=== PATIENT | male | born 1965 | race African-American/Black ===

== ENCOUNTER 2017-09-20 13:29 | Inpatient (IN) | payer OTHER ==
[2017-09-20 16:33] VITALS: BMI 33.4
--- NOTE | 2017-09-20 20:10 | HP ---
Admission ROS [facility] - [facility] Chief Complaint: I WANT TO GO TO REHAB Allergies/Adverse Reactions: Allergies Allergy/AdvReac Type Severity Reaction Status Date / Time No Known Allergies Allergy Verified 09/20/17 20:06 History of Present Illness: 51 YEARS OLD MALE WITH LONG HISTORY OF COCAINE NICOTINE DEPENDENCE HAS HYPERTENSION DIABETES II AND SCHIZOPHRENIA IS ADMITTED TO REHAB Exam Limitations: No Limitations - Ebola screening Have you traveled outside of the country in the last 21 days: No (N) Have you had contact with anyone from an Ebola affected area: No Have you been sick,other than usual withdrawal symptoms: No Do you have a fever: No - Review of Systems Constitutional: Weight Stable EENT: reports: Blurred Vision (EYE GLASSES) Respiratory: reports: No Symptoms reported Cardiac: reports: No Symptoms Reported GI: reports: No Symptoms Reported : reports: No Symptoms Reported Musculoskeletal: reports: No Symptoms Reported Integumentary: reports: No Symptoms Reported Neuro: reports: No Symptoms reported Endocrine: reports: Increased Urine Hematology: reports: No Symptoms Reported Psychiatric: reports: Judgement Intact, Orientated x3, Anxious, Depressed Other Systems: Reviewed and Negative Patient History - Patient Medical History Hx Anemia: No Hx Asthma: No Hx Chronic Obstructive Pulmonary Disease (COPD): No Hx Cancer: No Hx Cardiac Disorders: No Hx Congestive Heart Failure: No Hx Hypertension: Yes Hx Hypercholesterolemia: No Hx Pacemaker: No HX Cerebrovascular Accident: No Hx Seizures: No Hx Dementia: No Hx Diabetes: Yes Hx Gastrointestinal Disorders: No Hx Liver Disease: No Hx Genitourinary Disorders: No Hx Sexually Transmitted Disorders: No Hx Renal Disease (ESRD): No Hx Thyroid Disease: No Hx Human Immunodeficiency Virus (HIV): No Hx Hepatitis C: No Hx Depression: No Hx Suicide Attempt: No Hx Bipolar Disorder: No Hx Schizophrenia: Yes - Patient Surgical History Past Surgical History: No - PPD History Previous Implant?: Yes Documented Results: Negative w/o proof Implanted On Prior [facility] Admission?: No PPD to be Administered?: Yes - Smoking Cessation Smoking history: Current every day smoker Have you smoked in the past 12 months: Yes Aproximately how many cigarettes per day: 6 Cigars Per Day: 0 Hx Chewing Tobacco Use: No Initiated information on smoking cessation: Yes 'Breaking Loose' booklet given: 09/20/17 - Substance & Tx. History Hx Alcohol Use: No Hx Substance Use: Yes Substance Use Type: Cocaine Hx Substance Use Treatment: No ([facility]) - Substances Abused Cocaine Route: Smoking Frequency: Daily Amount used: 50$ Age of first use: 22 Date of Last Use: 09/19/17 Family Disease History - Family Disease History Family Disease History: Diabetes: Brother, Heart Disease: Brother, Sister, [place]: Mother (), Other: Father (NO CONTACT), Mother Admission Physical Exam [facility] - Vital Signs Vital Signs: Vital Signs - 24 hr 09/20/17 16:32 Temperature 98.9 F Pulse Rate 70 Respiratory 18 Rate Blood Pressure 150/83 - Physical General Appearance: Yes: No Apparent Distress, Appropriately Dressed, Obese HEENTM: Yes: Hearing grossly Normal, Normal ENT Inspection, Normocephalic, Normal Voice Respiratory: Yes: Chest Non-Tender, Lungs Clear, Normal Breath Sounds, No Respiratory Distress, No Accessory Muscle Use Neck: Yes: Supple, Trachea in good position Breast: Yes: Breasts Symetrical Cardiology: Yes: Regular Rhythm, Regular Rate, S1, S2 Abdominal: Yes: Normal Bowel Sounds, Non Tender, Flat, Soft Genitourinary: Yes: Within Normal Limits Back: Yes: Normal Inspection Musculoskeletal: Yes: full range of Motion, Gait Steady Extremities: Yes: Normal Inspection, Normal Range of Motion, Non-Tender Neurological: Yes: Fully Oriented, Alert, Motor Strength 5/5, Normal Mood/Affect , Normal Response Integumentary: Yes: Normal Color, Warm Lymphatic: Yes: Within Normal Limits - Diagnostic (1) Cocaine dependence, uncomplicated Current Visit: Yes Status: Acute (2) Nicotine dependence Current Visit: Yes Status: Acute Qualifiers: Nicotine product type: cigarettes Substance use status: in withdrawal Qualified Code(s): F17.213 - Nicotine dependence, cigarettes, with withdrawal (3) Hypertension Current Visit: Yes Status: Chronic Qualifiers: Hypertension type: essential hypertension Qualified Code(s): I10 - Essential (primary) hypertension (4) Diabetes mellitus type II, controlled Current Visit: Yes Status: Chronic Qualifiers: Diabetes mellitus complication status: without complication Diabetes mellitus mcfp insulin use: with exterminator use Qualified Code(s): E11.9 - Type 2 diabetes mellitus without complications; Z79.4 - laborer marine terminal (current) use of insulin; Z79.4 - jail (current) use of insulin; Z79.4 - jail ( current) use of insulin; Z79.4 - laborer marine terminal (current) use of insulin (5) Schizophrenia Current Visit: Yes Status: Suspected Qualifiers: Schizophrenia type: undifferentiated schizophrenia Qualified Code(s): F20.3 - Undifferentiated schizophrenia Cleared for Admission [facility] - Detox or Rehab [facility] Level of Care: Observation Bed Detox Regimen/Protocol: Not Applicable Claeared for Rehab Admission: Yes [facility] Breath Alcohol Content Breath Alcohol Content: 0 Urine Drug Screen - Results Drug Screen Negative: No Urine Drug Screen Results: REGINE-Cocaine Inpatient Rehab Admission - Initial Determination Are CD services needed?: Yes Free of communicable disease: Yes Not in need of hospitalization: Yes - Rehab Admission Criteria Previous failed treatment: Yes Poor recovery environment: Yes Comorbidities: Yes Lacks judgement: No Patient is meeting Inpatient Rehab admission criteria:: Yes
[2017-09-20] MEDS ORDERED: LOPERAMIDE HCL 2 MG CAPSULE PO PRN (20:15)
[2017-09-20] MEDS ORDERED: MAGNESIUM HYDROX 2400MG/30ML ORAL SUSPENSION 30 ML CUP PO PRN (20:15)
[2017-09-20] MEDS ORDERED: MAG HYDROX/AL HYDROX/SIMETH 30 ML UNIT-DOSE CUP PO PRN (20:15)
[2017-09-20] MEDS ORDERED: guaiFENesin/D-METHORPHAN HB 10 ML UNIT-DOSE CUPS PO PRN (20:15)
[2017-09-20] MEDS ORDERED: P-EPHED 60MG/TRIPROLIDI 2.5MG TABLET PO PRN (20:15)
[2017-09-20] MEDS ORDERED: MENTHOL/PHENOL 1 EACH UD MM PRN (20:15)
[2017-09-20] MEDS ORDERED: IBUPROFEN 400 MG TABLET (FP) PO PRN (20:15)
[2017-09-20] MEDS ORDERED: ACETAMINOPHEN 325 MG TABLET (FP) PO PRN (20:15)
[2017-09-20] MEDS ORDERED: MAGNESIUM CITRATE 300 ML BOTTLE PO PRN (20:15)
[2017-09-20] MEDS: THIAMINE HCL 100 MG TABLET (FP) PO SCH (22:35)
[2017-09-20] MEDS: INSULIN DETEMIR 100 UNITS/ML MDV SQ SCH (22:36)
[2017-09-20] MEDS: INSULIN SLIDING SCALE (NOVOLOG) 1 VIAL SQ SCH (22:36)
[2017-09-20] MEDS: NICOTINE POLACRILEX 2 MG GUM BC PRN (22:38)
[2017-09-21 03:11] LABS: URINE APPEARANCE CLEAR; URINE BILIRUBIN NEGATIVE (NEGATIVE); URINE BLOOD NEGATIVE (NEGATIVE); URINE COLOR LTYELLOW; URINE GLUCOSE (UA) 1+ (NEGATIVE); URINE KETONE NEGATIVE (NEGATIVE); URINE LEUK ESTERASE NEGATIVE (NEGATIVE); URINE NITRITE NEGATIVE (NEGATIVE); URINE PROTEIN NEGATIVE (NEGATIVE); URINE UROBILINOGEN NEGATIVE mg/dL (0.2-1.0)
--- NOTE | 2017-09-21 07:02 | HP ---
Psychiatrist Admission - Data Date of interview: 09/21/17 Admission source: [facility] Identifying data: Mr Moctezuma is a 51 years old single Black male, father of 2 children, unemployed on public assistance, homeless living in [place] [facility] Medical History: Significant for hypertension and type 2 diabetes mellitus. Smokes 6 cigarettes daily Psychiatric History: Reports that his first psychiatric contact was in December 2016 when he was brought to [facility] ED for hearing voices. States that after being observed for one day and prescribed medications, he was discharged and referred to [facility] OPD for aftercare. He could not provide any information about medications he was prescribed. According to pharmacy claims, he first filled scripts for Haldol 1 mg #30 and Cogentin 2 mg #30 on 12/28/16. On 01/27/17 he filled last scripts for Haldol 5 mg #30 and Cogentin 2 mg #30. On 02/10/17 he filled first script for Zoloft 50 mg #30. On 03/30/17, he filled first script for Zyprexa 5 mg #7, on 04/20/17 script for Zyprexa 5mg #30 and last script for Zyprexa 2.5 mg #14. On 09/15/17, he filled script for Abilify 19 mg #30 and Zoloft 100 mg #30. Analyzing informatio from patient and pharmacy claims, one can conclude that he was discharged on Haldol 1 mg and Cogentin 2mg from [facility] ED. At the clinic, Haldol was dosage was increased to 5 mg then swiched to Zyprexa 5 mg and finally swiched to Abilify 10 mg. He was also started on Zoloft 50 mg and dosage later increased to 100 mg. Physical/Sexual Abuse/Trauma History: Denies history of verbal, physical or sexual abuse as well as DV relationship. No service Additional Comment: Reports history of 3 previous arrests all felony convictions. Reports being on parole till 2020 Vital Signs: Vital Signs - 24 hr 09/20/17 09/21/17 09/21/17 16:32 00:30 03:30 Temperature 98.9 F Pulse Rate 70 Respiratory 18 18 18 Rate Blood Pressure 150/83 09/21/17 06:56 Temperature 98.1 F Pulse Rate 68 Respiratory 18 Rate Blood Pressure 166/101 Allergies/Adverse Reactions: Allergies Allergy/AdvReac Type Severity Reaction Status Date / Time No Known Allergies Allergy Verified 09/20/17 20:06 Date of last physical exam: 09/20/17 Concur with the findings of this exam: Yes - Substance Abuse/Tx History Hx Alcohol Use: No Hx Substance Use: Yes Substance Use Type: Cocaine (Started smoking crack cocaine at age 22, consumes $ 50 worth daily. Last smoked on 09/19/16) Hx Substance Use Treatment: No Mental Status Exam - Mental Status Exam Alert and Oriented to: Time, Place, Person Cognitive Function: Fair Patient Appearance: Disheveled Mood: Depressed Affect: Blunted Patient Behavior: Cooperative Speech Pattern: Clear Voice Loudness: Normal Thought Process: Intact, Goal Oriented Hallucinations: Denies Suicidal Ideation: Denies Homicidal Ideation: Denies Insight/Judgement: Poor Sleep: Poorly Appetite: Good Muscle strength/Tone: Normal Gait/Station: Normal Psychiatric Findings - Problem List (Antonito 1, 2,3) (1) Cocaine dependence Current Visit: Yes Status: Acute (2) Nicotine dependence Current Visit: Yes Status: Chronic Qualifiers: Nicotine product type: cigarettes Substance use status: in withdrawal Qualified Code(s): F17.213 - Nicotine dependence, cigarettes, with withdrawal (3) Schizophrenia Current Visit: Yes Status: Chronic Qualifiers: Schizophrenia type: undifferentiated schizophrenia Qualified Code(s): F20.3 - Undifferentiated schizophrenia (4) Substance-induced sleep disorder Current Visit: Yes Status: Acute (5) Diabetes mellitus type II, controlled Current Visit: Yes Status: Chronic Qualifiers: Diabetes mellitus complication status: without complication Diabetes mellitus long term care social worker insulin use: with custodial use Qualified Code(s): E11.9 - Type 2 diabetes mellitus without complications; Z79.4 - long term care social worker (current) use of insulin; Z79.4 - correction (current) use of insulin; Z79.4 - correction ( current) use of insulin; Z79.4 - long term care social worker (current) use of insulin (6) Hypertension Current Visit: Yes Status: Chronic Qualifiers: Hypertension type: essential hypertension Qualified Code(s): I10 - Essential (primary) hypertension (7) Substance induced mood disorder Current Visit: Yes Status: Acute - Initial Treatment Plan Initial Treatment Plan: 1) Start Abilify 10 mg po daily and Zoloft 100 mg po daily. 2) Start Belsomra 10 mg po HS prn for insomnia. 3) Monitor progress
[2017-09-21] MEDS: NICOTINE 14 MG/24 HOURS TOPICAL PATCH TD SCH (10:18)
[2017-09-21] MEDS: PRENATAL VITAMINS W/ FOLIC ACID TABLET (FP) PO SCH (10:18)
[2017-09-21 10:35] LABS: HEMATOCRIT 43.8 % (35.4-49); HEMOGLOBIN 13.9 GM/dL (11.7-16.9); MCH 29.2 pg (25.7-33.7); MCHC 31.8 g/dl (32.0-35.9); MEAN CELL VOLUME 91.7 fl (80-96); MEAN PLT VOLUME 10.3 fl (7.5-11.1); PLATELET COUNT 184 K/MM3 (134-434); RBC 4.77 M/mm3 (4.00-5.60); RDW 17.3 % (11.9-15.9); WHITE BLOOD COUNT 5.5 K/mm3 (4.0-10.0)
[2017-09-21] MEDS: SERTRALINE HCL 50 MG TABLET (FP) PO SCH (10:57)
[2017-09-21] MEDS: RAMIPRIL 5 MG CAPSULE (FP) PO SCH (10:57)
[2017-09-21] MEDS: ARIPiprazole 10 MG TABLET PO SCH (10:57)
--- NOTE | 2017-09-21 14:45 | EKG ---
Test Reason : Blood Pressure : / mmHG Vent. Rate : 066 BPM Atrial Rate : 066 BPM P-R Int : 130 ms QRS Dur : 088 ms QT Int : 394 ms P-R-T Axes : 053 007 048 degrees QTc Int : 413 ms NORMAL SINUS RHYTHM NONSPECIFIC T WAVE ABNORMALITY ABNORMAL ECG NO PREVIOUS ECGS AVAILABLE Confirmed by Clifton Denny MD ([id number]) on 09/21/2017 2:45:25 PM Referred By: Confirmed By:Clifton Denny MD
[2017-09-21 15:10] LABS: ALBUMIN 3.4 g/dl (3.4-5.0); ANION GAP 5 (8-16); BILIRUBIN,TOTAL 0.4 mg/dL (0.2-1.0); BLOOD UREA NITROGEN 21 mg/dL (7-18); CALCIUM 8.4 mg/dL (8.5-10.1); CHLORIDE 108 mmol/L (98-107); CO2 28 mmol/L (21-32); CREATININE 1.2 mg/dL (0.7-1.3); GLUCOSE,RANDOM 131 mg/dL (74-106); SGOT/AST 21 U/L (15-37); SGPT/ALT 31 U/L (12-78); SODIUM 141 mmol/L (136-145); TOT PROT 6.7 g/dl (6.4-8.2)
[2017-09-21 15:11] LABS: ALK PHOS 82 U/L (45-117)
[2017-09-21] MEDS: INSULIN DETEMIR 100 UNITS/ML MDV SQ SCH (21:38)
[2017-09-21] MEDS: THIAMINE HCL 100 MG TABLET (FP) PO SCH (21:38)
[2017-09-21] MEDS: INSULIN SLIDING SCALE (NOVOLOG) 1 VIAL SQ SCH (21:39)
[2017-09-21] MEDS: NICOTINE POLACRILEX 2 MG GUM BC PRN (21:40)
[2017-09-22] MEDS ORDERED: cloNIDine HCL 0.1 MG TABLET PO ONE (06:31)
[2017-09-22] MEDS: PRENATAL VITAMINS W/ FOLIC ACID TABLET (FP) PO SCH (10:05)
[2017-09-22] MEDS: RAMIPRIL 5 MG CAPSULE (FP) PO SCH (10:05)
[2017-09-22] MEDS: ARIPiprazole 10 MG TABLET PO SCH (10:05)
[2017-09-22] MEDS: SERTRALINE HCL 50 MG TABLET (FP) PO SCH (10:05)
[2017-09-22] MEDS: NICOTINE 14 MG/24 HOURS TOPICAL PATCH TD SCH (10:06)
[2017-09-22] MEDS: INSULIN SLIDING SCALE (NOVOLOG) 1 VIAL SQ SCH (21:03)
[2017-09-22] MEDS: THIAMINE HCL 100 MG TABLET (FP) PO SCH (21:03)
[2017-09-22] MEDS: NICOTINE POLACRILEX 2 MG GUM BC PRN (21:04)
[2017-09-22] MEDS: INSULIN DETEMIR 100 UNITS/ML MDV SQ SCH (21:04)
[2017-09-23] MEDS ORDERED: cloNIDine HCL 0.1 MG TABLET PO ONE (06:30)
[2017-09-23] MEDS: ARIPiprazole 10 MG TABLET PO SCH (10:19)
[2017-09-23] MEDS: PRENATAL VITAMINS W/ FOLIC ACID TABLET (FP) PO SCH (10:19)
[2017-09-23] MEDS: NICOTINE 14 MG/24 HOURS TOPICAL PATCH TD SCH (10:19)
[2017-09-23] MEDS: SERTRALINE HCL 50 MG TABLET (FP) PO SCH (10:19)
[2017-09-23] MEDS: RAMIPRIL 5 MG CAPSULE (FP) PO SCH (10:29)
[2017-09-23] MEDS: INSULIN SLIDING SCALE (NOVOLOG) 1 VIAL SQ SCH (21:02)
[2017-09-23] MEDS: INSULIN DETEMIR 100 UNITS/ML MDV SQ SCH (21:02)
[2017-09-23] MEDS: THIAMINE HCL 100 MG TABLET (FP) PO SCH (21:02)
[2017-09-23] MEDS: NICOTINE POLACRILEX 2 MG GUM BC PRN (21:02)
[2017-09-23] MEDS: SUVOREXANT 10 MG TABLET PO PRN (21:34)
[2017-09-24] MEDS: RAMIPRIL 5 MG CAPSULE (FP) PO SCH (07:21)
[2017-09-24] MEDS: SERTRALINE HCL 50 MG TABLET (FP) PO SCH (10:07)
[2017-09-24] MEDS: NICOTINE 14 MG/24 HOURS TOPICAL PATCH TD SCH (10:07)
[2017-09-24] MEDS: ARIPiprazole 10 MG TABLET PO SCH (10:08)
[2017-09-24] MEDS: PRENATAL VITAMINS W/ FOLIC ACID TABLET (FP) PO SCH (10:08)
[2017-09-24] MEDS ORDERED: cloNIDine HCL 0.1 MG TABLET PO ONE (12:19)
[2017-09-24] MEDS: amLODIPine BESYLATE 5 MG TABLET (FP) PO SCH (14:21)
[2017-09-24] MEDS: THIAMINE HCL 100 MG TABLET (FP) PO SCH (21:12)
[2017-09-24] MEDS: NICOTINE POLACRILEX 2 MG GUM BC PRN (21:13)
[2017-09-24] MEDS: INSULIN SLIDING SCALE (NOVOLOG) 1 VIAL SQ SCH (21:13)
[2017-09-24] MEDS: INSULIN DETEMIR 100 UNITS/ML MDV SQ SCH (21:14)
[2017-09-24] MEDS: SUVOREXANT 10 MG TABLET PO PRN (21:56)
[2017-09-25] MEDS: RAMIPRIL 5 MG CAPSULE (FP) PO SCH (06:31)
[2017-09-25] MEDS: NICOTINE 14 MG/24 HOURS TOPICAL PATCH TD SCH (10:06)
[2017-09-25] MEDS: amLODIPine BESYLATE 5 MG TABLET (FP) PO SCH (10:06)
[2017-09-25] MEDS: SERTRALINE HCL 50 MG TABLET (FP) PO SCH (10:06)
[2017-09-25] MEDS: PRENATAL VITAMINS W/ FOLIC ACID TABLET (FP) PO SCH (10:06)
[2017-09-25] MEDS: ARIPiprazole 10 MG TABLET PO SCH (10:06)
[2017-09-25] MEDS: NICOTINE POLACRILEX 2 MG GUM BC PRN ×2 (14:17→18:01)
[2017-09-25] MEDS: THIAMINE HCL 100 MG TABLET (FP) PO SCH (21:12)
[2017-09-25] MEDS: INSULIN DETEMIR 100 UNITS/ML MDV SQ SCH (21:13)
[2017-09-25] MEDS: SUVOREXANT 10 MG TABLET PO PRN (21:13)
[2017-09-25] MEDS: INSULIN SLIDING SCALE (NOVOLOG) 1 VIAL SQ SCH (21:14)
[2017-09-26] MEDS: RAMIPRIL 5 MG CAPSULE (FP) PO SCH (06:38)
[2017-09-26] MEDS: NICOTINE 14 MG/24 HOURS TOPICAL PATCH TD SCH (09:52)
[2017-09-26] MEDS: PRENATAL VITAMINS W/ FOLIC ACID TABLET (FP) PO SCH (09:52)
[2017-09-26] MEDS: ARIPiprazole 10 MG TABLET PO SCH (09:52)
[2017-09-26] MEDS: SERTRALINE HCL 50 MG TABLET (FP) PO SCH (09:52)
[2017-09-26] MEDS: amLODIPine BESYLATE 5 MG TABLET (FP) PO SCH (09:53)
[2017-09-26] MEDS: INSULIN DETEMIR 100 UNITS/ML MDV SQ SCH (21:14)
[2017-09-26] MEDS: SUVOREXANT 10 MG TABLET PO PRN (21:14)
[2017-09-26] MEDS: THIAMINE HCL 100 MG TABLET (FP) PO SCH (21:14)
[2017-09-26] MEDS: INSULIN SLIDING SCALE (NOVOLOG) 1 VIAL SQ SCH (21:14)
[2017-09-26] MEDS: NICOTINE POLACRILEX 2 MG GUM BC PRN (21:16)
[2017-09-27] MEDS: RAMIPRIL 5 MG CAPSULE (FP) PO SCH (06:29)
[2017-09-27] MEDS: SERTRALINE HCL 50 MG TABLET (FP) PO SCH (09:23)
[2017-09-27] MEDS: ARIPiprazole 10 MG TABLET PO SCH (09:23)
[2017-09-27] MEDS: NICOTINE 14 MG/24 HOURS TOPICAL PATCH TD SCH (09:23)
[2017-09-27] MEDS: PRENATAL VITAMINS W/ FOLIC ACID TABLET (FP) PO SCH (09:23)
[2017-09-27] MEDS: amLODIPine BESYLATE 5 MG TABLET (FP) PO SCH (09:23)
[2017-09-28] MEDS: RAMIPRIL 5 MG CAPSULE (FP) PO SCH (06:11)
[2017-09-28] MEDS: ARIPiprazole 10 MG TABLET PO SCH (10:19)
[2017-09-28] MEDS: PRENATAL VITAMINS W/ FOLIC ACID TABLET (FP) PO SCH (10:19)
[2017-09-28] MEDS: SERTRALINE HCL 50 MG TABLET (FP) PO SCH (10:19)
[2017-09-28] MEDS: NICOTINE 14 MG/24 HOURS TOPICAL PATCH TD SCH (10:19)
[2017-09-28] MEDS: amLODIPine BESYLATE 5 MG TABLET (FP) PO SCH (10:19)
[2017-09-28] MEDS: INSULIN DETEMIR 100 UNITS/ML MDV SQ SCH ×2 (18:40→22:21)
[2017-09-28] MEDS: THIAMINE HCL 100 MG TABLET (FP) PO SCH ×2 (18:41→22:22)
[2017-09-28] MEDS: INSULIN SLIDING SCALE (NOVOLOG) 1 VIAL SQ SCH ×2 (18:41→22:22)
[2017-09-28] MEDS: NICOTINE POLACRILEX 2 MG GUM BC PRN (22:21)
[2017-09-29] MEDS: RAMIPRIL 5 MG CAPSULE (FP) PO SCH (06:32)
[2017-09-29] MEDS: SERTRALINE HCL 50 MG TABLET (FP) PO SCH (10:03)
[2017-09-29] MEDS: PRENATAL VITAMINS W/ FOLIC ACID TABLET (FP) PO SCH (10:03)
[2017-09-29] MEDS: ARIPiprazole 10 MG TABLET PO SCH (10:03)
[2017-09-29] MEDS: amLODIPine BESYLATE 5 MG TABLET (FP) PO SCH (10:03)
[2017-09-29] MEDS: NICOTINE 14 MG/24 HOURS TOPICAL PATCH TD SCH (10:03)
[2017-09-29] MEDS: THIAMINE HCL 100 MG TABLET (FP) PO SCH (21:14)
[2017-09-29] MEDS: INSULIN DETEMIR 100 UNITS/ML MDV SQ SCH (21:15)
[2017-09-29] MEDS: INSULIN SLIDING SCALE (NOVOLOG) 1 VIAL SQ SCH (21:15)
[2017-09-30] MEDS: RAMIPRIL 5 MG CAPSULE (FP) PO SCH (06:33)
[2017-09-30] MEDS: ARIPiprazole 10 MG TABLET PO SCH (10:12)
[2017-09-30] MEDS: amLODIPine BESYLATE 5 MG TABLET (FP) PO SCH (10:12)
[2017-09-30] MEDS: PRENATAL VITAMINS W/ FOLIC ACID TABLET (FP) PO SCH (10:12)
[2017-09-30] MEDS: NICOTINE 14 MG/24 HOURS TOPICAL PATCH TD SCH (10:12)
[2017-09-30] MEDS: SERTRALINE HCL 50 MG TABLET (FP) PO SCH (10:12)
[2017-09-30] MEDS: HYDROCHLOROTHIAZIDE 12.5 MG CAPSULE (FP) PO SCH (10:12)
[2017-09-30] MEDS: THIAMINE HCL 100 MG TABLET (FP) PO SCH (21:36)
[2017-09-30] MEDS: INSULIN DETEMIR 100 UNITS/ML MDV SQ SCH (21:41)
[2017-09-30] MEDS: INSULIN SLIDING SCALE (NOVOLOG) 1 VIAL SQ SCH (23:05)
[2017-10-01] MEDS: RAMIPRIL 5 MG CAPSULE (FP) PO SCH (06:12)
[2017-10-01] MEDS: NICOTINE POLACRILEX 2 MG GUM BC PRN ×2 (06:14→21:17)
[2017-10-01] MEDS: PRENATAL VITAMINS W/ FOLIC ACID TABLET (FP) PO SCH (10:20)
[2017-10-01] MEDS: HYDROCHLOROTHIAZIDE 12.5 MG CAPSULE (FP) PO SCH (10:20)
[2017-10-01] MEDS: amLODIPine BESYLATE 5 MG TABLET (FP) PO SCH (10:21)
[2017-10-01] MEDS: ARIPiprazole 10 MG TABLET PO SCH (10:21)
[2017-10-01] MEDS: SERTRALINE HCL 50 MG TABLET (FP) PO SCH (10:21)
[2017-10-01] MEDS: NICOTINE 14 MG/24 HOURS TOPICAL PATCH TD SCH (10:21)
[2017-10-01] MEDS: THIAMINE HCL 100 MG TABLET (FP) PO SCH (21:16)
[2017-10-01] MEDS: INSULIN DETEMIR 100 UNITS/ML MDV SQ SCH (21:17)
[2017-10-01] MEDS: INSULIN SLIDING SCALE (NOVOLOG) 1 VIAL SQ SCH (21:17)
[2017-10-02] MEDS: RAMIPRIL 5 MG CAPSULE (FP) PO SCH (06:14)
[2017-10-02] MEDS: NICOTINE 14 MG/24 HOURS TOPICAL PATCH TD SCH (10:10)
[2017-10-02] MEDS: SERTRALINE HCL 50 MG TABLET (FP) PO SCH (10:10)
[2017-10-02] MEDS: ARIPiprazole 10 MG TABLET PO SCH (10:10)
[2017-10-02] MEDS: HYDROCHLOROTHIAZIDE 12.5 MG CAPSULE (FP) PO SCH (10:10)
[2017-10-02] MEDS: amLODIPine BESYLATE 5 MG TABLET (FP) PO SCH (10:10)
[2017-10-02] MEDS: PRENATAL VITAMINS W/ FOLIC ACID TABLET (FP) PO SCH (10:10)
[2017-10-02] MEDS: THIAMINE HCL 100 MG TABLET (FP) PO SCH (21:07)
[2017-10-02] MEDS: INSULIN SLIDING SCALE (NOVOLOG) 1 VIAL SQ SCH (21:07)
[2017-10-02] MEDS: INSULIN DETEMIR 100 UNITS/ML MDV SQ SCH (21:07)
[2017-10-02] MEDS: NICOTINE POLACRILEX 2 MG GUM BC PRN (21:08)
[2017-10-03] MEDS: RAMIPRIL 5 MG CAPSULE (FP) PO SCH (06:17)
[2017-10-03] MEDS: amLODIPine BESYLATE 5 MG TABLET (FP) PO SCH (10:04)
[2017-10-03] MEDS: SERTRALINE HCL 50 MG TABLET (FP) PO SCH (10:04)
[2017-10-03] MEDS: PRENATAL VITAMINS W/ FOLIC ACID TABLET (FP) PO SCH (10:04)
[2017-10-03] MEDS: ARIPiprazole 10 MG TABLET PO SCH (10:04)
[2017-10-03] MEDS: NICOTINE 14 MG/24 HOURS TOPICAL PATCH TD SCH (10:04)
[2017-10-03] MEDS: HYDROCHLOROTHIAZIDE 12.5 MG CAPSULE (FP) PO SCH (10:04)
[2017-10-03] MEDS: THIAMINE HCL 100 MG TABLET (FP) PO SCH (21:10)
[2017-10-03] MEDS: INSULIN DETEMIR 100 UNITS/ML MDV SQ SCH (21:10)
[2017-10-03] MEDS: INSULIN SLIDING SCALE (NOVOLOG) 1 VIAL SQ SCH (21:10)
[2017-10-04] MEDS: RAMIPRIL 5 MG CAPSULE (FP) PO SCH (06:29)
[2017-10-04 07:02] VITALS: BP 156/95; PULSE 66; TEMP 97.1
--- NOTE | 2017-10-04 07:12 | PN ---
Psychiatric Progress Note Vital Signs: Vital Signs Period Temp Pulse Resp BP Sys/Michelle Pulse Ox Last 24 Hr 97.1 F 66-81 18-20 156-164/95-97 Date of Session: 10/04/17 Chief Complaint:: Discharge Note HPI: Patient addressing Cocaine Dependence comorbid with Nicotine Dependence, Schizoaffective Disorder, Substance-induced Mood Disorder and Substance-Induced Sleep Disorder Current Medications: Active Medications Generic Name Dose Route Start Last Admin Trade Name Freq PRN Reason Stop Dose Admin Acetaminophen 650 mg 09/20/17 20:15 Tylenol - PO Q4H PRN PAIN Al Hydroxide/Mg Hydroxide 30 ml 09/20/17 20:15 Mylanta Oral Suspension - PO Q6H PRN DYSPEPSIA Amlodipine Besylate 5 mg 09/24/17 12:30 10/03/17 10:04 Norvasc - PO 5 mg DAILY LAVERNE Administration Aripiprazole 10 mg 09/21/17 10:00 10/03/17 10:04 Abilify PO 10 mg DAILY LAVERNE Administration Eucalyptus/Menthol/Phenol/Sorbitol 1 each 09/20/17 20:15 Cepastat Lozenge - MM Q4H PRN SORE THROAT Guaifenesin 10 ml 09/20/17 20:15 Robitussin Dm - PO Q6H PRN COUGH Hydrochlorothiazide 12.5 mg 09/30/17 10:00 10/03/17 10:04 Hctz - PO 12.5 mg DAILY LAVERNE Administration Ibuprofen 400 mg 09/20/17 20:15 Motrin - PO Q6H PRN SEVERE PAIN Insulin Aspart 1 vial 09/20/17 22:00 10/03/17 21:10 Novolog Vial Sliding Scale - SQ Not Given HS [facility] Protocol Insulin Detemir 32 units 09/20/17 22:00 10/03/17 21:10 Levemir Vial SQ 32 units HS [facility] Administration Loperamide HCl 4 mg 09/20/17 20:15 Imodium - PO Q6H PRN DIARRHEA Magnesium Citrate 300 ml 09/20/17 20:15 Citroma - PO Q48H PRN CONSTIPATION Magnesium Hydroxide 30 ml 09/20/17 20:15 Milk Of Magnesia - PO DAILY PRN CONSTIPATION Nicotine 14 mg 09/21/17 10:00 10/03/17 10:04 Nicoderm Patch - TD 14 mg DAILY LAVERNE Administration Nicotine Polacrilex 2 mg 09/20/17 20:15 10/02/17 21:08 Nicorette Gum - BC 2 mg Q2H PRN Administration NICOTINE REPLACEMENT RX Multivit/Folic Acid/Iron 1 tab 09/21/17 10:00 10/03/17 10:04 Vitamins ([facility]) - PO 1 tab DAILY LAVERNE Administration Pseudoephedrine/Triprolidine 1 combo 09/20/17 20:15 Actifed - PO TID PRN NASAL CONGESTION Ramipril 10 mg 09/24/17 07:13 10/04/17 06:29 Altace - PO 10 mg DAILY@0600 LAVERNE Administration Sertraline HCl 100 mg 09/21/17 10:00 10/03/17 10:04 Zoloft - PO 100 mg DAILY LAVERNE Administration Thiamine HCl 100 mg 09/20/17 22:00 10/03/17 21:10 Vitamin B1 - PO 100 mg HS LAVERNE Administration Current Side Effect: No Lab tests ordered: Yes Lab tests reviewed: Yes Provider note:: Patient has completed this program today. He has met his treatment goals and will be attending in order to continue addressing his addiction issues. He responded well to Abilify 10 mg po daily, Zoloft 100 mg po daily and Belsomra 10 mg po HS prn for insomnia. Scripts for 30 days supply of Abilify and Zoloft are electronicaly transmitted to [facility] at [address] [place] [address]. He is stable for discharge today Total face to face time:: 35 Mental Status Exam - Mental Status Exam Alert and Oriented to: Time, Place, Person Cognitive Function: Fair Patient Appearance: Well Groomed Mood: Hopeful, Euthymic Affect: Appropriate Patient Behavior: Cooperative Speech Pattern: Clear Voice Loudness: Normal Thought Process: Intact, Goal Oriented Thought Disorder: Not Present Hallucinations: Denies Suicidal Ideation: Denies Homicidal Ideation: Denies Insight/Judgement: Fair Sleep: Fair Appetite: Good Muscle strength/Tone: Normal Gait/Station: Normal Psychiatric Treatment Plan - Problem List (1) Cocaine dependence Current Visit: Yes (2) Nicotine dependence Current Visit: Yes Qualifiers: Nicotine product type: cigarettes Substance use status: in withdrawal Qualified Code(s): F17.213 - Nicotine dependence, cigarettes, with withdrawal (3) Schizophrenia Current Visit: Yes Qualifiers: Schizophrenia type: undifferentiated schizophrenia Qualified Code(s): F20.3 - Undifferentiated schizophrenia (4) Substance-induced sleep disorder Current Visit: Yes (5) Diabetes mellitus type II, controlled Current Visit: Yes Qualifiers: Diabetes mellitus complication status: without complication Diabetes mellitus chcf insulin use: with chcf use Qualified Code(s): E11.9 - Type 2 diabetes mellitus without complications; Z79.4 - termite control servicer (current) use of insulin; Z79.4 - termite control servicer (current) use of insulin; Z79.4 - termite control servicer ( current) use of insulin; Z79.4 - termite control servicer (current) use of insulin (6) Hypertension Current Visit: Yes Qualifiers: Hypertension type: essential hypertension Qualified Code(s): I10 - Essential (primary) hypertension (7) Substance induced mood disorder Current Visit: Yes Initial treatment plan: Patient is discharged today and will be attending
[2017-10-04] MEDS: amLODIPine BESYLATE 5 MG TABLET (FP) PO SCH (09:22)
[2017-10-04] MEDS: PRENATAL VITAMINS W/ FOLIC ACID TABLET (FP) PO SCH (09:22)
[2017-10-04] MEDS: ARIPiprazole 10 MG TABLET PO SCH (09:22)
[2017-10-04] MEDS: HYDROCHLOROTHIAZIDE 12.5 MG CAPSULE (FP) PO SCH (09:22)
[2017-10-04] MEDS: SERTRALINE HCL 50 MG TABLET (FP) PO SCH (09:22)
[2017-10-04] MEDS: NICOTINE 14 MG/24 HOURS TOPICAL PATCH TD SCH (09:23)
== END 2017-10-04 09:50 | disposition home or self-care (01) | DRG 772 ==
LOC: YASAS 13:29 → Y3W 20:51 → Y3E 22:07 → Y3W 22:09
PROVIDERS: ADMIT Psychiatry & Neurology Psychiatry; ATTEND Psychiatry & Neurology Psychiatry
PROC: HZ42ZZZ Group Counseling for Substance Abuse Treatment, Cognitive-Behavioral (ICD-10-PCS; principal; 2017-09-20)
DX: F14.20 Cocaine dependence, uncomplicated (principal); F17.213 Nicotine dependence, cigarettes, with withdrawal; F20.3 Undifferentiated schizophrenia; F19.24 Other psychoactive substance dependence with psychoactive substance-induced mood disorder; F19.282 Other psychoactive substance dependence with psychoactive substance-induced sleep disorder; I10 Essential (primary) hypertension; E11.9 Type 2 diabetes mellitus without complications; E66.9 Obesity, unspecified; Z68.33 Body mass index [BMI] 33.0-33.9, adult; Z79.4 Long term (current) use of insulin
CPT/HCPCS: 36415; 80053; 81003; 82962; 85027; 86593; 87389; 93005; 93010; J0735